=== PATIENT | male | born 1950 | race Caucasian/White ===

== ENCOUNTER 2021-03-16 11:25 | Emergency (ER) | payer BC ==
[2021-03-16] MEDS ORDERED: Rabies Immune Globulin PF 150 Units/ML 2 ML SDV IM ONE (12:44)
[2021-03-16] MEDS ORDERED: Rabies Vaccine (Avian) 2.5 Unit Inj Kit IM ONE (12:44)
--- NOTE | 2021-03-16 12:54 | EDM.PDOC ---
ED HPI GENERAL MEDICAL PROBLEM - General Chief Complaint: Bite:Animal, Insect Stated Complaint: POSS EXPOSURE TO RABIES Time Seen by Provider: 03/16/21 12:16 Source of Information: Reports: Patient, RN Notes Reviewed History Limitations: Reports: No Limitations - History of Present Illness INITIAL COMMENTS - FREE TEXT/NARRATIVE: Patient is a 71-year-old male who presents to the ER for the evaluation of a possible rabies exposure. Patient states that he had an elderly horse, that had some symptoms of rabies, such as foaming at the mouth. He states he has shot the horse, and buried it since then. He notes that he was cleaning out a water trough from this horse, that had foam on top of the water and he did clean this foam off with his bare hands. States that he does have some superficial abrasions and cuts on his hands. He was not wearing gloves. He does note that there are skunks around this area, and he became concerned due to the foaming of the mouth and the foam of the water, that he could have had a possible rabies exposure. States that today he did call three or four clinical providers, along with the [facility], and they told him that although he was at minimal risk, there is still not zero risk percentage that he could have been exposed to rabies. Patient has had no sick symptoms like fevers or chills, cough or shortness of breath, or any other sort of rabies-like symptoms. States that he is in good health at this time. - Related Data Allergies Allergy/AdvReac Type Severity Reaction Status Date / Time clopidogrel bisulfate Allergy Hives Verified 03/16/21 12:14 [From Plavix] lisinopril Allergy Cannot Verified 03/16/21 12:14 Remember Past Medical History HEENT History: Reports: Impaired Vision Other HEENT History: wears glasses Cardiovascular History: Reports: High Cholesterol, Hypertension, Stents Genitourinary History: Reports: Other (See Below) Other Genitourinary History: enlarged prostate Musculoskeletal History: Reports: Other (See Below) Other Musculoskeletal History: fractured wrist, elbow Endocrine/Metabolic History: Reports: Hypothyroidism - Past Surgical History Cardiovascular Surgical History: Reports: Coronary Artery Stent Neurological Surgical History: Reports: Other (See Below) Other Neurological Surgeries/Procedures: C2 frature Musculoskeletal Surgical History: Reports: Knee Replacement Social & Family History - Family History Family Medical History: No Pertinent Family History - Tobacco Use Tobacco Use Status *Q: Never Tobacco User Second Hand Smoke Exposure: No - Caffeine Use Caffeine Use: Reports: Coffee - Recreational Drug Use Recreational Drug Use: No ED ROS GENERAL - Review of Systems Review Of Systems: Comprehensive ROS is negative, except as noted in HPI. ED EXAM, ANIMAL BITE - Physical Exam Exam: See Below Exam Limited By: No Limitations General Appearance: Alert, WD/WN, No Apparent Distress Respiratory/Chest: No Respiratory Distress, Lungs Clear, Normal Breath Sounds, No Accessory Muscle Use, Chest Non-Tender Cardiovascular: Normal Peripheral Pulses, Regular Rate, Rhythm, No Edema Extremities: Normal Inspection, Normal Capillary Refill Neurological: Alert, Oriented, Normal Cognition, No Motor/Sensory Deficits Psychiatric: Normal Affect, Normal Mood Skin Exam: Normal Color, Warm/Dry Course - Vital Signs Last Recorded V/S: Last Vital Signs Temp 96.5 F L 03/16/21 12:09 Pulse 55 L 03/16/21 12:09 Resp 16 03/16/21 12:09 BP 174/99 H 03/16/21 12:09 Pulse Ox 98 03/16/21 12:09 - Orders/Labs/Meds Meds: Medications Discontinued Medications Generic Name Dose Route Start Last Admin Trade Name Freq PRN Reason Stop Dose Admin Rabies Immune Globulin 2,220 unit 03/16/21 12:44 Rabies Immune Globulin Pf 150 Units/Ml 2 Ml Sdv IM 03/16/21 12:45 .ONCE ONE Rabies Immune Globulin 2,220 unit 03/16/21 13:15 Rabies Immune Globulin/Pf 300 Unit/Ml 5 Ml Sdv IM 03/16/21 13:16 .ONCE ONE Rabies Vaccine 2.5 unit 03/16/21 12:44 Rabies Vaccine (Isidro) 2.5 Unit Inj Kit IM 03/16/21 12:45 .ONCE ONE - Re-Assessments/Exams Free Text/Narrative Re-Assessment/Exam: 03/16/21 13:36 Patient presents to the ER for the evaluation of a possible rabies exposure, we will go ahead and start prophylaxis. Patient will need rabies immunoglobulin along with the vaccine. Day zero would be today, so day three is 03/19, day seven is 03/23, and day 14 is 11. Departure - Departure Time of Disposition: 12:52 Disposition: Home, Self-Care 01 Condition: Good Clinical Impression: Need for post exposure prophylaxis for rabies - Discharge Information *PRESCRIPTION DRUG MONITORING PROGRAM REVIEWED*: No *COPY OF PRESCRIPTION DRUG MONITORING REPORT IN PATIENT BÁRBARA: No Referrals: Prieto Abad MD [Primary Care Provider] - Forms: ED Department Discharge Additional Instructions: You were evaluated in the ER today for possible rabies exposure. You have been started on rabies vaccine series. This is a series of four shots given over 2-week period. Day zero would be today, so day three is 03/19, day seven is 03/23, and day 14 is 03/30. Do not hesitate to return to the ER at any time if symptoms change or worsen. Sepsis Event Note (ED) - Evaluation Sepsis Screening Result: No Definite Risk - Focused Exam Vital Signs: Vital Signs Temp Pulse Resp BP Pulse Ox 03/16/21 12:09 96.5 F L 55 L 16 174/99 H 98
[2021-03-16] MEDS ORDERED: Rabies Immune Globulin/PF 300 UNIT/ML 5 ML SDV IM ONE (13:15)
== END 2021-03-16 13:45 | disposition home or self-care (01) ==
LOC: JD.ED 11:25
DX: Z20.3 Contact with and (suspected) exposure to rabies (principal); Z23 Encounter for immunization
CPT/HCPCS: 90375; 90675; 96372; 99283